=== PATIENT | female | born 1930 | race Caucasian/White ===

== ENCOUNTER 2017-10-07 10:19 | Inpatient (IN) | payer OTHER, BC ==
[~2017-10-07] VITALS: Ht 162.6 cm; Wt 50.8 kg
[2017-10-07 10:58] LABS: BASOPHIL (%) 0.6 % (0-1); EOSINOPHIL (%) 2.8 % (0-5); EOSINOPHIL COUNT 0.2 K/uL (0-0.3); HEMATOCRIT 38.1 % (36.0-46.0); HEMOGLOBIN 13.2 G/DL (11.9-15.5); IMMATURE GRANULOCYTE (%) 0.4 % (0.0-0.7); LYMPHOCYTE COUNT 0.5 K/uL (1.0-2.8); MCH 31.6 PG (29.0-34.0); MCHC 34.6 G/DL (30.0-36.0); MCV 91.1 FL (83-99); MONOCYTE (%) 5.8 % (3-12); MONOCYTE COUNT 0.3 K/uL (0-0.8); NEUTROPHIL (%) 80.4 % (45-76); NEUTROPHIL COUNT 4.3 K/uL (1.8-6.4); PLATELET COUNT 191 K/uL (156-360); RBC DIS.WIDTH-CV 13.7 % (11.8-14.6); RBC DIS.WIDTH-SD 45.8 % (39-53); RED BLOOD COUNT 4.18 M/uL (3.80-5.20); WHITE BLOOD COUNT 5.4 K/uL (4.1-10.2)
[2017-10-07 11:04] LABS: INTER. NORMALIZED RATIO 1.1
[2017-10-07 11:07] LABS: PTT 27.1 SEC (25-37)
[2017-10-07 11:07] LABS: ALBUMIN 3.5 g/dL (3.2-4.8); CHLORIDE 108 mEq/L (99-109); POTASSIUM 3.5 mEq/L (3.7-5.4); SODIUM 143 mEq/L (136-147)
[2017-10-07 11:08] LABS: MAGNESIUM 2.1 mg/dL (1.3-2.7)
[2017-10-07 11:10] LABS: GLUCOSE 99 mg/dL (70-99); TOTAL PROTEIN 6.1 g/dL (6.4-8.3)
[2017-10-07 11:12] LABS: TOTAL BILIRUBIN 0.6 mg/dL (0.0-1.0)
[2017-10-07 11:13] LABS: ALKALINE PHOSPHATASE 71 IU/L (3-129)
[2017-10-07 11:14] LABS: CREATININE 0.6 mg/dL (0.6-1.3); GFR ESTIMATE (CALCULATED) > 59 mL/min/
[2017-10-07 11:15] LABS: AST (GOT) 31 IU/L (2-34); UREA NITROGEN (BUN) 19 mg/dL (9-23)
[2017-10-07 11:17] LABS: ALT (GPT) 27 IU/L (3-49); CREATINE KINASE 122 IU/L (1-294); TOTAL CK 122 IU/L (1-294)
[2017-10-07 11:18] LABS: TROP-I INTERPRETATION NEGATIVE; TROPONIN-I < 0.01 ng/mL (0.0-0.30)
[2017-10-07 11:22] LABS: CK-MB 5.4 ng/mL (0.0-4.9); CKMB RELATIVE INDEX 4.4 (0.0-3.9)
[2017-10-07] MEDS ORDERED: LO-DOSE ASPIRIN81 M2 PO (13:28)
[2017-10-07] MEDS ORDERED: LIPITOR20 MG PO (13:29)
[2017-10-07] MEDS ORDERED: PEPCID AC20 MG PO (13:29)
[2017-10-07] MEDS ORDERED: COLACE100 MG PO (13:29)
[2017-10-07] MEDS ORDERED: MAALOX ADVANCE355 ML PO (13:30)
[2017-10-07] MEDS ORDERED: ATIVAN1 MG PO (13:31)
[2017-10-07] MEDS ORDERED: TYLENOL REGULA325 MG PO (13:31)
[2017-10-07 15:49] VITALS: BP 149/70
[2017-10-07 19:15] VITALS: BP 131/73
[2017-10-08] VITALS (8 sets, daily range): BP systolic 111–181; BP diastolic 56–92
[2017-10-08 06:01] LABS: HEMATOCRIT 34.5 % (36.0-46.0); HEMOGLOBIN 11.5 G/DL (11.9-15.5); MCH 30.7 PG (29.0-34.0); MCHC 33.3 G/DL (30.0-36.0); MCV 92.2 FL (83-99); PLATELET COUNT 186 K/uL (156-360); RBC DIS.WIDTH-CV 13.9 % (11.8-14.6); RBC DIS.WIDTH-SD 47.3 % (39-53); RED BLOOD COUNT 3.74 M/uL (3.80-5.20); WHITE BLOOD COUNT 5.3 K/uL (4.1-10.2)
[2017-10-08 06:37] LABS: CHLORIDE 112 MEQ/L (99-109); CREATININE 0.5 MG/DL (0.6-1.3); GFR ESTIMATE (CALCULATED) > 59 mL/min/; GLUCOSE 108 mg/dL (70-99); POTASSIUM 3.2 MEQ/L (3.7-5.4); SODIUM 145 MEQ/L (136-147); UREA NITROGEN (BUN) 13 mg/dL (9-23)
[2017-10-08 10:45] LABS: TROP-I INTERPRETATION NEGATIVE; TROPONIN-I < 0.01 ng/mL (0.0-0.30)
[2017-10-08 15:57] LABS: TROP-I INTERPRETATION NEGATIVE; TROPONIN-I < 0.01 ng/mL (0.0-0.30)
[2017-10-08 22:20] LABS: TROP-I INTERPRETATION NEGATIVE; TROPONIN-I 0.01 ng/mL (0.0-0.30)
[2017-10-09 05:11] LABS: BASOPHIL (%) 0.3 % (0-1); EOSINOPHIL (%) 0 % (0-5); HEMOGLOBIN 11.9 G/DL (11.9-15.5); IMMATURE GRANULOCYTE (%) 0.3 % (0.0-0.7); LYMPHOCYTE (%) 10.8 % (15-42); LYMPHOCYTE COUNT 0.4 K/uL (1.0-2.8); MCH 31.6 PG (29.0-34.0); MCV 93.1 FL (83-99); MONOCYTE (%) 2.2 % (3-12); MONOCYTE COUNT 0.1 K/uL (0-0.8); NEUTROPHIL (%) 86.4 % (45-76); NEUTROPHIL COUNT 3.2 K/uL (1.8-6.4); PLATELET COUNT 172 K/uL (156-360); RBC DIS.WIDTH-CV 13.5 % (11.8-14.6); RBC DIS.WIDTH-SD 45.7 % (39-53); RED BLOOD COUNT 3.76 M/uL (3.80-5.20); WHITE BLOOD COUNT 3.7 K/uL (4.1-10.2)
[2017-10-09 05:50] LABS: CHLORIDE 113 mEq/L (99-109); SODIUM 143 mEq/L (136-147)
[2017-10-09 05:55] LABS: CREATININE 0.6 mg/dL (0.6-1.3); GFR ESTIMATE (CALCULATED) > 59 mL/min/
[2017-10-09 05:56] LABS: UREA NITROGEN (BUN) 11 mg/dL (9-23)
[2017-10-09 05:58] LABS: GLUCOSE 168 mg/dL (70-99); POTASSIUM 4.2 mEq/L (3.7-5.4)
[2017-10-09 08:00] VITALS: BP 142/69
[2017-10-09 11:32] VITALS: BP 139/72
[2017-10-09 15:40] VITALS: BP 148/75
[2017-10-09 20:44] VITALS: BP 138/66
[2017-10-09 23:00] VITALS: BP 130/78
[2017-10-10 04:00] VITALS: BP 125/78
[2017-10-10 07:22] LABS: BASOPHIL (%) 0.5 % (0-1); EOSINOPHIL (%) 3.9 % (0-5); EOSINOPHIL COUNT 0.2 K/uL (0-0.3); HEMATOCRIT 33.4 % (36.0-46.0); HEMOGLOBIN 11.1 G/DL (11.9-15.5); IMMATURE GRANULOCYTE (%) 0.3 % (0.0-0.7); LYMPHOCYTE (%) 21.8 % (15-42); LYMPHOCYTE COUNT 1.3 K/uL (1.0-2.8); MCH 31.3 PG (29.0-34.0); MCHC 33.2 G/DL (30.0-36.0); MCV 94.1 FL (83-99); MONOCYTE (%) 7.2 % (3-12); MONOCYTE COUNT 0.4 K/uL (0-0.8); NEUTROPHIL (%) 66.3 % (45-76); NEUTROPHIL COUNT 3.9 K/uL (1.8-6.4); PLATELET COUNT 174 K/uL (156-360); RBC DIS.WIDTH-SD 47.8 % (39-53); RED BLOOD COUNT 3.55 M/uL (3.80-5.20); WHITE BLOOD COUNT 5.9 K/uL (4.1-10.2)
[2017-10-10 08:40] VITALS: BP 126/65
[2017-10-10 09:34] LABS: CHLORIDE 113 MEQ/L (99-109); CREATININE 0.5 MG/DL (0.6-1.3); GFR ESTIMATE (CALCULATED) > 59 mL/min/; POTASSIUM 3.5 MEQ/L (3.7-5.4); SODIUM 146 MEQ/L (136-147); UREA NITROGEN (BUN) 10 mg/dL (9-23)
[2017-10-10 09:35] LABS: GLUCOSE 98 mg/dL (70-99)
[2017-10-10 11:23] VITALS: BP 151/70
[2017-10-10 15:27] VITALS: BP 136/66
[2017-10-10 19:34] VITALS: BP 116/67
[2017-10-11 05:31] LABS: BASOPHIL (%) 0.6 % (0-1); EOSINOPHIL (%) 5.8 % (0-5); EOSINOPHIL COUNT 0.3 K/uL (0-0.3); HEMATOCRIT 33.8 % (36.0-46.0); HEMOGLOBIN 11.3 G/DL (11.9-15.5); IMMATURE GRANULOCYTE (%) 0.4 % (0.0-0.7); LYMPHOCYTE COUNT 1.2 K/uL (1.0-2.8); MCH 31.2 PG (29.0-34.0); MCHC 33.4 G/DL (30.0-36.0); MCV 93.4 FL (83-99); MONOCYTE (%) 8.4 % (3-12); MONOCYTE COUNT 0.5 K/uL (0-0.8); NEUTROPHIL (%) 62.8 % (45-76); NEUTROPHIL COUNT 3.4 K/uL (1.8-6.4); PLATELET COUNT 185 K/uL (156-360); RBC DIS.WIDTH-SD 47.7 % (39-53); RED BLOOD COUNT 3.62 M/uL (3.80-5.20); WHITE BLOOD COUNT 5.4 K/uL (4.1-10.2)
[2017-10-11 05:58] LABS: CHLORIDE 111 MEQ/L (99-109); CREATININE 0.5 MG/DL (0.6-1.3); GFR ESTIMATE (CALCULATED) > 59 mL/min/; GLUCOSE 103 mg/dL (70-99); POTASSIUM 3.5 MEQ/L (3.7-5.4); SODIUM 146 MEQ/L (136-147); UREA NITROGEN (BUN) 8 mg/dL (9-23)
[2017-10-11 08:40] VITALS: BP 154/75
[2017-10-11 13:17] LABS: APPEARANCE SL.HAZY ((CLEAR)); BILIRUBIN NEGATIVE; BLOOD NEGATIVE; COLOR YELLOW ((YELLOW)); GLUCOSE (STRIP) NEGATIVE; KETONES NEGATIVE; LEUKOCYTES SMALL; NITRITE NEGATIVE; PROTEIN (STRIP) NEGATIVE; SPECIFIC GRAVITY 1.008 (1.000-1.030); UROBILINOGEN 0.2 MG/DL (0.2-1.0)
[2017-10-11 13:35] LABS: BACTERIA 1+ /HPF; EPITHELIAL CELLS RARE /HPF; MUCUS NONE SEEN /LPF; RED BLOOD CELLS 0-5 /HPF (0-5); UCUL ADDED? YES
[2017-10-11] MEDS ORDERED: CIPROFLOXACIN250 MG PO (15:34)
== END 2017-10-11 16:26 | disposition home health service (06) | DRG 83 ==
LOC: EME 10:19 → 4EAST 12:36 → EDOF 12:36 → ENRESERV 12:38 → EDOF 15:09 → 4EAST 15:33 → ENRESERV 10-09 16:40 → 3EAST 10-09 20:43
PROVIDERS: Emergency Medicine; Hospitalist; Internal Medicine
DX: S06.5X9A Traumatic subdural hemorrhage with loss of consciousness of unspecified duration, initial encounter (principal); E87.6 Hypokalemia; R13.10 Dysphagia, unspecified; R06.1 Stridor; R06.03 Acute respiratory distress; N39.0 Urinary tract infection, site not specified; S01.81XA Laceration without foreign body of other part of head, initial encounter; S51.812A Laceration without foreign body of left forearm, initial encounter; S60.051A Contusion of right little finger without damage to nail, initial encounter; W19.XXXA Unspecified fall, initial encounter; Y92.002 Bathroom of unspecified non-institutional (private) residence as the place of occurrence of the external cause; R07.89 Other chest pain; E78.5 Hyperlipidemia, unspecified; E11.9 Type 2 diabetes mellitus without complications; M06.9 Rheumatoid arthritis, unspecified; M54.2 Cervicalgia; G30.9 Alzheimer's disease, unspecified; F02.80 Dementia in other diseases classified elsewhere, unspecified severity, without behavioral disturbance, psychotic disturbance, mood disturbance, and anxiety; Z66 Do not resuscitate; T14.8XXD Other injury of unspecified body region, subsequent encounter; Z91.81 History of falling; Z79.82 Long term (current) use of aspirin
CPT/HCPCS: 70450; 71045; 72125; 73030; 80048; 80053; 81003; 82306; 82550; 82553; 83735; 84484; 85025; 85027; 85610; 85730; 87077; 87086; 87186; 92610 GN; 93005; 94799; 97530 GO; 97530 GP; 99281; 99285; J2060; J2930; J3480; J7040; J7042; S0028